=== PATIENT | female | born 1950 | race Caucasian/White ===

== ENCOUNTER → 2017-02-13 | Outpatient (CLI) | payer OTHER ==
--- NOTE | ~2017-02-13 | MY11 ---
[facility] A Service of [facility] RADIOLOGY TEXT RESULTS PATIENT: LEE ABDI LOCATION: [facility] : 54 UNIT #: [id number] AGE: [address]: Melanie Mcpherson MD SEX: F ORDER DR: [id number] [facility] [address] [place], [place] [address] [id number] O MR#: [id number] Acc #: [id number] NAME: LEE ABDI : 1950 SEX: F STUDY DATE/TIME: 02/13/2017 13:11 UNIT: [facility] ROOM: STUDY DESCRIPTION: MY Mammogram Screening Dig Erik Attending Physician: Melanie Mcpherson M.D. Ordering Physician: Melanie Mcpherson M.D. Primary Care Physician: Baljinder Mcpherson M.D. MEDICAL IMAGING REPORT This report is preliminary unless electronic signature is present EXAM Digital screening mammogram 02/13/2017 HISTORY 66-year-old woman no risk elevation. Annual screen. COMPARISON Mammograms date to 07/30/2008 with most recent 12/16/2015. FINDINGS Digital imaging of each breast was completed utilizing a two-view examination of each breast in craniocaudal and mediolateral-oblique projections. Review and interpretation of digital mammograms include a second review in conjunction with FDA-approved CAD device. There is a normal parenchymal presentation bilaterally consistent with the patient's age. There are no breast masses imaged and no parenchymal asymmetry is visualized. There are no suspicious microcalcifications and I see no focal architectural disturbance. IMPRESSION Negative screening digital mammogram. One-year followup recommended. Patients over the age of 40 are entered into a reminder system with target due date for the next mammogram. A result letter will also be sent to the patient. BIRADS: 1 Negative Dictated by... Km Ramirez M.D. [facility] A Service of [facility] RADIOLOGY TEXT RESULTS PATIENT: LEE ABDI LOCATION: [facility] : 54 UNIT #: [id number] AGE: [address]: Melanie Mcpherson MD SEX: F ORDER DR: THIS IS AN ELECTRONICALLY VERIFIED REPORT Km Ramirez M.D. at 02/13/2017 3:28 PM KAMRYN/maren TD: 02/13/2017 15:26 JOB #: [id number] MEDICAL IMAGING REPORT Page 1 of 1 COPY
== END | disposition home or self-care (01) ==
LOC: CWCC 12:47
DX: Z12.31 Encounter for screening mammogram for malignant neoplasm of breast (principal)
CPT/HCPCS: G0202

== ENCOUNTER → 2017-05-31 | Outpatient (CLI) | payer OTHER, MEDICARE ==
--- NOTE | ~2017-05-31 | CR181 ---
[facility]. [facility] A Service of [facility] & [facility] RADIOLOGY TEXT RESULTS PATIENT: LEE ABDI LOCATION: [facility] : 54 UNIT #: [id number] AGE: [address]: Baljinder Mcpherson MD SEX: F ORDER DR: [id number] [place] [id number] O MR#: [id number] Acc #: [id number] NAME: LEE ABDI : 1950 SEX: F STUDY DATE/TIME: 05/31/2017 14:34 UNIT: [facility] ROOM: STUDY DESCRIPTION: CR Lumbar Spine 2 or 3 Views Attending Physician: Baljinder Mcpherson M.D. Referring Physician: Baljinder Mcpherson M.D. Ordering Physician: Baljinder Mcpherson M.D. Primary Care Physician: Baljinder Mcpherson M.D. MEDICAL IMAGING REPORT This report is preliminary unless electronic signature is present. EXAM Lumbar spine 3 views HISTORY Back pain after fall 2 weeks ago. FINDINGS Three views of the lumbar spine demonstrate very mild right upper lumbar curve. Minimal disc space narrowing at L2-3, L3-4. Small anterior marginal osteophytes in the upper and lower lumbar spine. Questionable subtle spondylolysis at L5. IMPRESSION 1. No lumbar subluxation. 2. Mild multilevel hypertrophic and degenerative changes upper and lower lumbar spine. 3. Questionable subtle spondylolysis at L5 but no spondylolisthesis. Dictated by... Juan Pablo Thornton M.D. THIS IS AN ELECTRONICALLY VERIFIED REPORT Juan Pablo Thornton M.D. at 06/03/2017 11:00 PM PHYLLIS/rebeka TD: 06/03/2017 07:15 JOB #: [id number] MEDICAL IMAGING REPORT Page 1 of 1
== END | disposition home or self-care (01) ==
LOC: SRAD 14:27
DX: M54.5 Low back pain (principal); M47.896 Other spondylosis, lumbar region; M53.86 Other specified dorsopathies, lumbar region
CPT/HCPCS: 72100